=== PATIENT | male | born 1960 | race Caucasian/White ===

== ENCOUNTER 2020-02-14 17:21 | Inpatient (IN) | payer BC, OTHER ==
[2020-02-14] MEDS ORDERED: Sodium Chloride 0.9% 10 ML Syringe FLUSH PRN (17:39)
[2020-02-14] MEDS ORDERED: Sodium Chloride 0.9% 1,000 ML IV ONE ×2 (17:39→18:57)
[2020-02-14] MEDS ORDERED: Ondansetron 4 MG/2 ML SDV IVPUSH ONE (17:39)
--- NOTE | 2020-02-14 17:46 | EDM.PDOC ---
ED HPI GENERAL MEDICAL PROBLEM - General Chief Complaint: General Stated Complaint: N/V Time Seen by Provider: 02/14/20 17:22 Source of Information: Reports: Patient History Limitations: Reports: No Limitations - History of Present Illness INITIAL COMMENTS - FREE TEXT/NARRATIVE: Patient is a 59-year-old gentleman who presents to the emergency department via private vehicle with a complaint of dizziness and vomiting. Patient states approximately 6 a.m. this morning, he became dizzy and had an episode of vomiting. This has persisted during the day and is increasing and worsening. decided to bring him to emergency department. Patient states he does have a history of uncontrollable high blood pressure. Patient denies fever, abdominal pain, blood in vomitus, bowel changes, chest pain, shortness of breath, covid concerns, out of area travel, or family members with similar symptoms. Onset: Today Onset Time: 06:00 Duration: Hour(s): Location: Reports: Head Quality: Reports: Pressure Severity: Mild Improves with: Reports: None Worsens with: Reports: Movement Context: Denies: Activity, Trauma Associated Symptoms: Reports: Diaphoresis, Nausea/Vomiting. Denies: Chest Pain, Fever/Chills, Shortness of Breath - Related Data Allergies Allergy/AdvReac Type Severity Reaction Status Date / Time No Known Drug Allergies Allergy Cannot Verified 02/14/20 19:00 Remember Home Meds: Home Meds Olmesartan [Benicar] 20 mg PO DAILY 02/14/20 [History] ED ROS GENERAL - Review of Systems Review Of Systems: Comprehensive ROS is negative, except as noted in HPI. Constitutional: Reports: No Symptoms HEENT: Reports: No Symptoms Respiratory: Reports: No Symptoms Cardiovascular: Reports: No Symptoms Endocrine: Reports: No Symptoms GI/Abdominal: Reports: Nausea, Vomiting. Denies: Abdominal Pain, Constipation, Diarrhea : Reports: No Symptoms Musculoskeletal: Reports: No Symptoms Skin: Reports: No Symptoms Neurological: Reports: Dizziness, Headache Psychiatric: Reports: No Symptoms Hematologic/Lymphatic: Reports: No Symptoms Immunologic: Reports: No Symptoms ED EXAM, GENERAL - Physical Exam Exam: See Below Exam Limited By: No Limitations General Appearance: Alert, WD/WN, Mild Distress Eye Exam: Bilateral Eye: Normal Inspection Ears: Normal External Exam, Normal Canal, Hearing Grossly Normal, Normal TMs Nose: Normal Inspection, Normal Mucosa, No Blood Throat/Mouth: Normal Inspection, Normal Oropharynx, No Airway Compromise Head: Atraumatic, Normocephalic Neck: Normal Inspection, Supple, Non-Tender, Full Range of Motion. No: Lymphadenopathy (L), Lymphadenopathy (R) Respiratory/Chest: No Respiratory Distress, Lungs Clear, Normal Breath Sounds, No Accessory Muscle Use, Chest Non-Tender Cardiovascular: Regular Rate, Rhythm, No Murmur GI/Abdominal: Normal Bowel Sounds, Soft, Non-Tender, No Organomegaly, No Distention, No Abnormal Bruit, No Mass Back Exam: Normal Inspection. No: CVA Tenderness (L), CVA Tenderness (R) Extremities: Normal Inspection, No Pedal Edema Neurological: Alert, Oriented, CN II-XII Intact, Normal Cognition Psychiatric: Normal Affect, Normal Mood Skin Exam: Warm, Dry, Intact, Normal Color, No Rash Lymphatic: No Adenopathy EKG INTERPRETATION EKG Date: 02/14/20 Time: 17:45 Rhythm: NSR Rate (Beats/Min): 64 [place]: Normal P-Wave: Present QRS: Normal ST-T: Normal QT: Normal Comparison: NA - No Prior EKG Course - Vital Signs Last Recorded V/S: Last Vital Signs Temp 97.3 F 02/14/20 17:32 Pulse 51 L 02/14/20 19:18 Resp 16 02/14/20 19:18 BP 197/86 H 02/14/20 19:18 Pulse Ox 97 02/14/20 19:18 - Orders/Labs/Meds Orders: Active Orders 24 hr Category Date Time Status EKG Documentation Completion [RC] ASDIRECTED Care 02/14/20 18:25 Ordered Peripheral IV Care [RC] . DIRECTED Care 02/14/20 17:39 Ordered Sodium Chloride 0.9% [Saline Flush] Med 02/14/20 17:39 Ordered 10 ml FLUSH Q8HR PRN hydrALAZINE [Apresoline] Med 02/14/20 20:45 Ordered 10 mg PO Q6H Peripheral IV Insertion Adult [OM.PC] Routine Oth 02/14/20 17:39 Ordered EKG 12 Lead [EK] Stat Ther 02/14/20 18:25 Ordered Medication Orders Hydralazine HCl (Apresoline) 10 mg PO Q6H BRET Ondansetron HCl (Zofran) 4 mg IV Q4H PRN PRN Reason: Nausea/Vomiting Sodium Chloride (Saline Flush) 10 ml FLUSH Q8HR PRN PRN Reason: keep vein open Labs: Laboratory Tests 02/14/20 02/14/20 02/14/20 Range/Units 17:52 17:52 17:52 WBC 10.11 H (5.00-10.00) 10^3/uL RBC 5.02 (4.50-6.00) 10^6/uL Hgb 15.8 (13.0-17.0) g/dL Hct 45.1 (40.0-52.0) % MCV 89.8 (82.0-92.0) fL MCH 31.5 H (27.0-31.0) pg MCHC 35.0 (32.0-36.0) g/dL RDW 12.4 (11.5-14.5) % Plt Count 240 (150-400) 10^3/uL MPV 9.3 (7.4-10.4) fL Immature Gran % (Auto) 0.3 (0.0-5.0) % Neut % (Auto) 89.0 H (50.0-70.0) % Lymph % (Auto) 7.0 L (20.0-40.0) % [place] % (Auto) 3.6 (2.0-8.0) % Eos % (Auto) 0.0 L (1.0-3.0) % Baso % (Auto) 0.1 (0.0-1.0) % Neut # (Auto) 9.00 H (2.50-7.00) 10^3/uL Lymph # (Auto) 0.71 L (1.00-4.00) 10^3/uL [place] # (Auto) 0.36 (0.10-0.80) 10^3/uL Eos # (Auto) 0.00 L (0.10-0.30) 10^3/uL Baso # (Auto) 0.01 (0.00-0.10) 10^3/uL Immature Gran # (Auto) 0.03 (0.00-0.50) 10^3/uL PT 10.0 (9.2-11.2) SEC INR 1.0 (0.9-1.1) APTT 24.3 (22.8-31.4) SEC Sodium 140 (136-145) mmol/L Potassium 3.7 (3.3-5.3) mmol/L Chloride 106 (98-115) mmol/L Carbon Dioxide 23.3 (21.0-32.0) mmol/L Anion Gap 14.4 (5-15) mmol/L BUN 14 (6-25) mg/dL Creatinine 0.68 (0.51-1.17) mg/dL Est Cr Clr Drug Dosing 121.50 mL/min Estimated GFR (MDRD) > 60 mL/min Glucose 174 H (75 - 99) mg/dL Calcium 8.6 L (8.7-10.3) mg/dL Total Bilirubin 0.5 (0.2-1.0) mg/dL AST 15 (15-37) U/L ALT 9 L (12-78) U/L Alkaline Phosphatase 74 (46-116) IU/L Troponin I (0.00-0.070) ng/mL Total Protein 7.2 (6.4-8.2) g/dL Albumin 3.86 (3.00-4.80) g/dL 02/14/20 Range/Units 17:52 WBC (5.00-10.00) 10^3/uL RBC (4.50-6.00) 10^6/uL Hgb (13.0-17.0) g/dL Hct (40.0-52.0) % MCV (82.0-92.0) fL MCH (27.0-31.0) pg MCHC (32.0-36.0) g/dL RDW (11.5-14.5) % Plt Count (150-400) 10^3/uL MPV (7.4-10.4) fL Immature Gran % (Auto) (0.0-5.0) % Neut % (Auto) (50.0-70.0) % Lymph % (Auto) (20.0-40.0) % [place] % (Auto) (2.0-8.0) % Eos % (Auto) (1.0-3.0) % Baso % (Auto) (0.0-1.0) % Neut # (Auto) (2.50-7.00) 10^3/uL Lymph # (Auto) (1.00-4.00) 10^3/uL [place] # (Auto) (0.10-0.80) 10^3/uL Eos # (Auto) (0.10-0.30) 10^3/uL Baso # (Auto) (0.00-0.10) 10^3/uL Immature Gran # (Auto) (0.00-0.50) 10^3/uL PT (9.2-11.2) SEC INR (0.9-1.1) APTT (22.8-31.4) SEC Sodium (136-145) mmol/L Potassium (3.3-5.3) mmol/L Chloride (98-115) mmol/L Carbon Dioxide (21.0-32.0) mmol/L Anion Gap (5-15) mmol/L BUN (6-25) mg/dL Creatinine (0.51-1.17) mg/dL Est Cr Clr Drug Dosing mL/min Estimated GFR (MDRD) mL/min Glucose (75 - 99) mg/dL Calcium (8.7-10.3) mg/dL Total Bilirubin (0.2-1.0) mg/dL AST (15-37) U/L ALT (12-78) U/L Alkaline Phosphatase (46-116) IU/L Troponin I 0.07 (0.00-0.070) ng/mL Total Protein (6.4-8.2) g/dL Albumin (3.00-4.80) g/dL Meds: Medications Generic Name Dose Route Start Last Admin Trade Name Freq PRN Reason Stop Dose Admin Hydralazine HCl 10 mg 02/14/20 20:45 Apresoline PO Q6H BRET Ondansetron HCl 4 mg 02/14/20 20:43 Zofran IV Q4H PRN Nausea/Vomiting Sodium Chloride 10 ml 02/14/20 17:39 Saline Flush FLUSH Q8HR PRN keep vein open Discontinued Medications Generic Name Dose Route Start Last Admin Trade Name Freq PRN Reason Stop Dose Admin Diazepam 2 mg 02/14/20 17:39 02/14/20 18:05 Valium IVPUSH 02/14/20 17:40 2 mg ONETIME ONE Administration Sodium Chloride 1,000 mls @ 999 mls/hr 02/14/20 17:39 02/14/20 17:55 Normal Saline IV 02/14/20 18:39 999 mls/hr .BOLUS ONE Administration Sodium Chloride 1,000 mls @ 999 mls/hr 02/14/20 18:57 02/14/20 19:00 Normal Saline IV 02/14/20 19:57 999 mls/hr .BOLUS ONE Administration Ketorolac Tromethamine 30 mg 02/14/20 18:57 02/14/20 19:07 Toradol IVPUSH 02/14/20 18:58 30 mg ONETIME ONE Administration Ondansetron HCl 8 mg 02/14/20 17:39 02/14/20 17:58 Zofran IVPUSH 02/14/20 17:40 8 mg ONETIME ONE Administration - Radiology Interpretation Free Text/Narrative:: CT head without contrast shows no acute intracranial process. - Re-Assessments/Exams Free Text/Narrative Re-Assessment/Exam: 02/14/20 20:41 Patient afebrile, dizziness and vomiting, resolved, blood pressure remains high after Benicar. Patient will be given 10 mg hydralazine. Discussed case with Dr. Reece, patient will be admitted and followed by her service for hypertension urgency and control Departure - Departure Time of Disposition: 21:07 Disposition: Refer to Observation Condition: Fair Clinical Impression: Hypertensive urgency, Hypertension screening, Vertigo - Discharge Information Sepsis Event Note (ED) - Evaluation Sepsis Screening Result: No Definite Risk - Focused Exam Vital Signs: Vital Signs Temp Pulse Resp BP Pulse Ox 02/14/20 19:18 51 L 16 197/86 H 97 02/14/20 17:32 97.3 F 74 20 207/112 H 95 - My Orders Last 24 Hours: My Active Orders 02/14/20 17:39 Peripheral IV Care [RC] . DIRECTED Sodium Chloride 0.9% [Saline Flush] 10 ml FLUSH Q8HR PRN Peripheral IV Insertion Adult [OM.PC] Routine 02/14/20 18:25 EKG Documentation Completion [RC] ASDIRECTED EKG 12 Lead [EK] Stat 02/14/20 20:45 hydrALAZINE [Apresoline] 10 mg PO Q6H - Assessment/Plan Last 24 Hours: My Active Orders 02/14/20 17:39 Peripheral IV Care [RC] . DIRECTED Sodium Chloride 0.9% [Saline Flush] 10 ml FLUSH Q8HR PRN Peripheral IV Insertion Adult [OM.PC] Routine 02/14/20 18:25 EKG Documentation Completion [RC] ASDIRECTED EKG 12 Lead [EK] Stat 02/14/20 20:45 hydrALAZINE [Apresoline] 10 mg PO Q6H Assessment:: Hypertension Plan: Admitted for observation
[2020-02-14 18:28] LABS: ANION GAP 14.4 mmol/L (5-15); CHLORIDE,CL 106 mmol/L (98-115); SODIUM,NA 140 mmol/L (136-145)
--- NOTE | 2020-02-14 18:31 | CT ---
[id number] CT/CT Head WO IV EXAM: CT Head WO IV CLINICAL DATA: DIZZINESS. COMPARISON STUDY: None FINDINGS: No intracranial hemorrhage, extra-axial fluid collection, mass, or acute ischemia. Soft tissues are unremarkable. Paranasal sinuses and mastoid air cells are clear. IMPRESSION: No acute intracranial findings. Sunny Thurman DO 02/14/20 1829 Thank you for allowing us to participate in the care of your patient.
[2020-02-14 18:40] LABS: PTT,PARTIAL THROMBOPLSTIN TIME 24.3 SEC (22.8-31.4)
[2020-02-14] MEDS ORDERED: Ketorolac 30 MG/ML SDV IVPUSH ONE (18:57)
[2020-02-14] MEDS ORDERED: Ondansetron 4 MG/2 ML SDV IV PRN (20:43)
[2020-02-14] MEDS: hydrALAZINE 10 MG Tab PO SCH (21:07)
[2020-02-15] MEDS: hydrALAZINE 10 MG Tab PO SCH ×4 (01:58→21:09)
[2020-02-15] MEDS ORDERED: OLMESARTAN 20 MG PO SCH (09:00)
[2020-02-15] MEDS ORDERED: Meclizine 25 MG Tab PO PRN (09:45)
[2020-02-15] MEDS: Sodium Chloride 0.9% 1,000 ML IV SCH ×2 (10:00→18:10)
--- NOTE | 2020-02-15 10:30 | PCM.PN ---
- General Info Date of Service: 02/15/20 Admission Dx/Problem (Free Text): Vertigo, vomiting, hypertensive urgency - Review of Systems Systems Review Comment:: 02/14: Darius is seen today in observation rounds. He was admitted through the ER on 02/13 with vertigo, vomiting and hypertensive urgency. He said his blood pressure usually runs around 150-160 systolic and 80's diastolic. He takes olmesartan 20 mg PO daily. He had previously been on that at 40 mg as well as HCTZ and metoprolol but "if my blood pressure gets down to the 130's I feel so wiped out and I feel better in the 150's. He reports being in his normal state of health when he woke up at 5:30AM on 02/13, he made some coffee and started to feel mildly unwell, drank half a cup of coffee and then "all of a sudden the room started to spin around me and I couldn't stop vomiting". No sick contacts, no recent illness. He has not had this happen before. He felt so unwell he presented to the ER. He had a head CT which was negative, EKG was negative, troponin 0.07, all other labs largely unremarkable with the exception of a BG Of 174 with no hx of diabetes. His blood press was noted to be 218/102, he had not yet taken his olmesartan for the day. He had hydralazine ordered for PRN help with his HTN and received a total of 30 mg since admission without much decrease in his BP. He denies having a headache. He did state on 02/13 he had vomited so much he "felt like my eyes were going to pop out of my head". He is open to getting his BP under better control. He currently is unable to open his eyes while talking with me due to the sensation that the room is spinning. He last vomited around 5PM on 02/13 but does feel nauseated. He notes that the IVF's and zofran in the ER did help some. PMH significant for poorly controlled HTN - He sees a provider in [place], [place] who has been prescribing his Benicar. Reportedly she is an MD that focuses on bioidentical medications and he has several supplements she has suggested he take and he does. He is looking for a PCP in the [place] area, where they have a summer home. PSH: R knee arthroscopy FMHx: Mother had diabetes, "100% of my family has HTN", he has 3 brothers, had 7 sisters, 1 from pancreatic cancer and another one from complications of diabetes. 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 - Patient Data Vitals - Most Recent: Last Vital Signs Temp 97.8 F 02/15/20 06:51 Pulse 85 02/15/20 06:51 Resp 16 02/15/20 06:51 BP 193/97 H 02/15/20 07:58 Pulse Ox 96 02/15/20 06:51 Weight - Most Recent: 260 lb 3 oz I&O - Last 24 Hours: Intake & Output 02/14/20 02/15/20 02/15/20 22:59 06:59 14:59 Intake Total 100 Balance 100 Lab Results Last 24 Hours: Laboratory Results - last 24 hr 02/14/20 02/14/20 02/14/20 Range/Units 17:52 17:52 17:52 WBC 10.11 H (5.00-10.00) 10^3/uL RBC 5.02 (4.50-6.00) 10^6/uL Hgb 15.8 (13.0-17.0) g/dL Hct 45.1 (40.0-52.0) % MCV 89.8 (82.0-92.0) fL MCH 31.5 H (27.0-31.0) pg MCHC 35.0 (32.0-36.0) g/dL RDW 12.4 (11.5-14.5) % Plt Count 240 (150-400) 10^3/uL MPV 9.3 (7.4-10.4) fL Immature Gran % (Auto) 0.3 (0.0-5.0) % Neut % (Auto) 89.0 H (50.0-70.0) % Lymph % (Auto) 7.0 L (20.0-40.0) % [place] % (Auto) 3.6 (2.0-8.0) % Eos % (Auto) 0.0 L (1.0-3.0) % Baso % (Auto) 0.1 (0.0-1.0) % Neut # (Auto) 9.00 H (2.50-7.00) 10^3/uL Lymph # (Auto) 0.71 L (1.00-4.00) 10^3/uL [place] # (Auto) 0.36 (0.10-0.80) 10^3/uL Eos # (Auto) 0.00 L (0.10-0.30) 10^3/uL Baso # (Auto) 0.01 (0.00-0.10) 10^3/uL Immature Gran # (Auto) 0.03 (0.00-0.50) 10^3/uL PT 10.0 (9.2-11.2) SEC INR 1.0 (0.9-1.1) APTT 24.3 (22.8-31.4) SEC Sodium 140 (136-145) mmol/L Potassium 3.7 (3.3-5.3) mmol/L Chloride 106 (98-115) mmol/L Carbon Dioxide 23.3 (21.0-32.0) mmol/L Anion Gap 14.4 (5-15) mmol/L BUN 14 (6-25) mg/dL Creatinine 0.68 (0.51-1.17) mg/dL Est Cr Clr Drug Dosing 121.50 mL/min Estimated GFR (MDRD) > 60 mL/min Glucose 174 H (75 - 99) mg/dL Calcium 8.6 L (8.7-10.3) mg/dL Total Bilirubin 0.5 (0.2-1.0) mg/dL AST 15 (15-37) U/L ALT 9 L (12-78) U/L Alkaline Phosphatase 74 (46-116) IU/L Troponin I (0.00-0.070) ng/mL Total Protein 7.2 (6.4-8.2) g/dL Albumin 3.86 (3.00-4.80) g/dL 02/14/20 Range/Units 17:52 WBC (5.00-10.00) 10^3/uL RBC (4.50-6.00) 10^6/uL Hgb (13.0-17.0) g/dL Hct (40.0-52.0) % MCV (82.0-92.0) fL MCH (27.0-31.0) pg MCHC (32.0-36.0) g/dL RDW (11.5-14.5) % Plt Count (150-400) 10^3/uL MPV (7.4-10.4) fL Immature Gran % (Auto) (0.0-5.0) % Neut % (Auto) (50.0-70.0) % Lymph % (Auto) (20.0-40.0) % [place] % (Auto) (2.0-8.0) % Eos % (Auto) (1.0-3.0) % Baso % (Auto) (0.0-1.0) % Neut # (Auto) (2.50-7.00) 10^3/uL Lymph # (Auto) (1.00-4.00) 10^3/uL [place] # (Auto) (0.10-0.80) 10^3/uL Eos # (Auto) (0.10-0.30) 10^3/uL Baso # (Auto) (0.00-0.10) 10^3/uL Immature Gran # (Auto) (0.00-0.50) 10^3/uL PT (9.2-11.2) SEC INR (0.9-1.1) APTT (22.8-31.4) SEC Sodium (136-145) mmol/L Potassium (3.3-5.3) mmol/L Chloride (98-115) mmol/L Carbon Dioxide (21.0-32.0) mmol/L Anion Gap (5-15) mmol/L BUN (6-25) mg/dL Creatinine (0.51-1.17) mg/dL Est Cr Clr Drug Dosing mL/min Estimated GFR (MDRD) mL/min Glucose (75 - 99) mg/dL Calcium (8.7-10.3) mg/dL Total Bilirubin (0.2-1.0) mg/dL AST (15-37) U/L ALT (12-78) U/L Alkaline Phosphatase (46-116) IU/L Troponin I 0.07 (0.00-0.070) ng/mL Total Protein (6.4-8.2) g/dL Albumin (3.00-4.80) g/dL Med Orders - Current: Current Medications Hydralazine HCl (Apresoline) 10 mg PO Q6H BRET Last Admin: 02/15/20 07:58 Dose: 10 mg Documented by: Meclizine HCl (Antivert) 25 mg PO Q6H PRN PRN Reason: Dizziness Non-Formulary Medication (Olmesartan [Benicar]) 20 mg PO DAILY [facility] Ondansetron HCl (Zofran) 4 mg IV Q4H PRN PRN Reason: Nausea/Vomiting Last Admin: 02/15/20 08:14 Dose: 4 mg Documented by: Sodium Chloride (Saline Flush) 10 ml FLUSH Q8HR PRN PRN Reason: keep vein open Last Admin: 02/15/20 08:13 Dose: 10 ml Documented by: Discontinued Medications Diazepam (Valium) 2 mg IVPUSH ONETIME ONE Stop: 02/14/20 17:40 Last Admin: 02/14/20 18:05 Dose: 2 mg Documented by: Sodium Chloride (Normal Saline) 1,000 mls @ 999 mls/hr IV .BOLUS ONE Stop: 02/14/20 18:39 Last Admin: 02/14/20 17:55 Dose: 999 mls/hr Documented by: Sodium Chloride (Normal Saline) 1,000 mls @ 999 mls/hr IV .BOLUS ONE Stop: 02/14/20 19:57 Last Admin: 02/14/20 19:00 Dose: 999 mls/hr Documented by: Ketorolac Tromethamine (Toradol) 30 mg IVPUSH ONETIME ONE Stop: 02/14/20 18:58 Last Admin: 02/14/20 19:07 Dose: 30 mg Documented by: Ondansetron HCl (Zofran) 8 mg IVPUSH ONETIME ONE Stop: 02/14/20 17:40 Last Admin: 02/14/20 17:58 Dose: 8 mg Documented by: - Exam General: Alert, Oriented, Cooperative, Mild Distress (Appears uncomfortable due to the vertigo) Lungs: Clear to Auscultation, Normal Respiratory Effort Cardiovascular: Regular Rate, Regular Rhythm, No Murmurs GI/Abdominal Exam: Normal Bowel Sounds Extremities: No Pedal Edema Sepsis Event Note - Evaluation Sepsis Screening Result: No Definite Risk - Focused Exam Vital Signs: Vital Signs Temp Pulse Resp BP BP BP Pulse Ox 02/15/20 07:58 193/97 H 02/15/20 06:51 97.8 F 85 16 195/98 H 197/99 H 96 02/15/20 03:56 74 187/96 H 02/15/20 02:00 98 F 88 20 218/102 H 96 02/15/20 01:58 218/102 H 02/14/20 22:56 97.5 F 77 16 203/95 H 97 Date Exam was Performed: 02/15/20 Time Exam was Performed: 11:10 - Problem List & Annotations (1) Hypertensive urgency SNOMED Code(s): 862662877 Code(s): I16.0 - HYPERTENSIVE URGENCY Status: Acute Current Visit: Yes (2) Vertigo SNOMED Code(s): 398053375 Code(s): R42 - DIZZINESS AND GIDDINESS Status: Acute Current Visit: Yes - Problem List Review Problem List Initiated/Reviewed/Updated: Yes - My Orders Last 24 Hours: My Active Orders 02/15/20 09:00 Olmesartan [Benicar] 20 mg PO DAILY 02/15/20 10:21 Meclizine [Antivert] 25 mg PO Q6H PRN - Assessment Assessment:: Hypertensive Urgency Vertigo Vomiting secondary to vertigo Elevated blood glucose - Plan Plan:: Hypertensive Urgency - Increase olmesartan to 40 mg PO daily (from his home supply) - Add HCTZ 25 mg PO daily - Hydralazine 10 mg IV PRN for systolic BP >190 - Repeat troponin 02/14 was 0.05 Vertigo - Meclizine 25 mg PO q 6 hours PRN vertigo - PT eval and treat for Malka maneuver Vomiting secondary to Vertigo - zofran 4 mg IV or PO q hours PRN N/V - NS at 125 mL/hr to maintain hydration as he has poor PO intake due to nausea Elevated blood glucose - A1C evaluated 02/14 and is normal at 5.2 Anticipate discharge to home in 1-2 days CODE STATUS: Full Code DVT prophylaxis: Ambulation
[2020-02-15 10:37] LABS: ANION GAP 14.1 mmol/L (5-15); CHLORIDE,CL 105 mmol/L (98-115); SODIUM,NA 143 mmol/L (136-145)
[2020-02-15 11:01] LABS: HEMOGLOBIN A1C 5.2 % (4.3-5.7)
[2020-02-15] MEDS: Hydrochlorothiazide 25 MG Tab PO SCH (11:35)
[2020-02-15] MEDS: OLMESARTAN 40 MG PO SCH (11:44)
[2020-02-15] MEDS: PROGESTERONE TOP SCH (11:59)
[2020-02-15] MEDS: TESTOSTERONE TOP SCH (11:59)
[2020-02-16] MEDS: hydrALAZINE 10 MG Tab PO SCH ×3 (02:16→14:07)
[2020-02-16] MEDS: Sodium Chloride 0.9% 1,000 ML IV SCH (02:16)
[2020-02-16] MEDS: PROGESTERONE TOP SCH (08:17)
[2020-02-16] MEDS: OLMESARTAN 40 MG PO SCH (08:17)
[2020-02-16] MEDS: TESTOSTERONE TOP SCH (08:17)
[2020-02-16] MEDS: Hydrochlorothiazide 25 MG Tab PO SCH (08:19)
[2020-02-16] MEDS ORDERED: Acetaminophen 325 MG Tab PO PRN (12:39)
--- NOTE | 2020-02-16 14:08 | PCM.PN ---
- General Info Date of Service: 02/16/20 Admission Dx/Problem (Free Text): Vertigo, vomiting, hypertensive urgency - Review of Systems Systems Review Comment:: 02/15: Darius had some BP's in the 160's 02/14 but this AM before he had his medications his BP was 200 systolic. After his medications it came down to 180 systolic although diastolic was 101. He reports that the sensation of the room spinning is better and he feels he is no longer off balance. He states his eyes and the front of his head felt a little off earlier this morning but he feels that was related to trying to read his phone without his reading glasses. IVF's were discontinued 02/15 as he has been drinking and eat adequately. - Patient Data Vitals - Most Recent: Last Vital Signs Temp 97.4 F 02/16/20 10:49 Pulse 64 02/16/20 10:49 Resp 20 02/16/20 10:49 BP 188/101 H 02/16/20 10:49 Pulse Ox 94 L 02/16/20 10:49 Weight - Most Recent: 260 lb 3 oz I&O - Last 24 Hours: Intake & Output 02/15/20 02/16/20 02/16/20 22:59 06:59 14:59 Intake Total 2089 1970 Balance 2089 1970 Med Orders - Current: Current Medications Acetaminophen (Tylenol) 650 mg PO Q4H PRN PRN Reason: Headache Last Admin: 02/16/20 12:47 Dose: 650 mg Documented by: Hydralazine HCl (Apresoline) 10 mg PO Q6H PRN PRN Reason: Hypertension Hydrochlorothiazide (Hydrochlorothiazide) 25 mg PO DAILY [facility] Last Admin: 02/16/20 08:19 Dose: 25 mg Documented by: Meclizine HCl (Antivert) 25 mg PO Q6H PRN PRN Reason: Dizziness Last Admin: 02/15/20 11:34 Dose: 25 mg Documented by: Ondansetron HCl (Zofran) 4 mg IV Q4H PRN PRN Reason: Nausea/Vomiting Last Admin: 02/15/20 08:14 Dose: 4 mg Documented by: Olmesartan [Benicar] (40 Mg) 0 each PO DAILY [facility] Last Admin: 02/16/20 08:17 Dose: 1 each Documented by: Testosterone/Progesterone Lipoderm 250mg/5mg/Ml Cream 0 each TOP DAILY [facility] Last Admin: 02/16/20 08:17 Dose: 1 each Documented by: Sodium Chloride (Saline Flush) 10 ml FLUSH Q8HR PRN PRN Reason: keep vein open Last Admin: 02/15/20 08:13 Dose: 10 ml Documented by: Discontinued Medications Diazepam (Valium) 2 mg IVPUSH ONETIME ONE Stop: 02/14/20 17:40 Last Admin: 02/14/20 18:05 Dose: 2 mg Documented by: Hydralazine HCl (Apresoline) 10 mg PO Q6H [facility] Last Admin: 02/16/20 14:07 Dose: Not Given Documented by: Sodium Chloride (Normal Saline) 1,000 mls @ 999 mls/hr IV .BOLUS ONE Stop: 02/14/20 18:39 Last Admin: 02/14/20 17:55 Dose: 999 mls/hr Documented by: Sodium Chloride (Normal Saline) 1,000 mls @ 999 mls/hr IV .BOLUS ONE Stop: 02/14/20 19:57 Last Admin: 02/14/20 19:00 Dose: 999 mls/hr Documented by: Sodium Chloride (Normal Saline) 1,000 mls @ 125 mls/hr IV ASDIRECTED [facility] Last Admin: 02/16/20 02:16 Dose: 125 mls/hr Documented by: Ketorolac Tromethamine (Toradol) 30 mg IVPUSH ONETIME ONE Stop: 02/14/20 18:58 Last Admin: 02/14/20 19:07 Dose: 30 mg Documented by: Non-Formulary Medication (Olmesartan [Benicar]) 20 mg PO DAILY [facility] Last Admin: 02/15/20 10:34 Dose: Not Given Documented by: Ondansetron HCl (Zofran) 8 mg IVPUSH ONETIME ONE Stop: 02/14/20 17:40 Last Admin: 02/14/20 17:58 Dose: 8 mg Documented by: - Exam General: Alert, Oriented, Cooperative, No Acute Distress Lungs: Clear to Auscultation, Normal Respiratory Effort Cardiovascular: Regular Rate, Regular Rhythm, No Murmurs GI/Abdominal Exam: Normal Bowel Sounds Extremities: No Pedal Edema Sepsis Event Note - Evaluation Sepsis Screening Result: No Definite Risk - Focused Exam Vital Signs: Vital Signs Temp Pulse Resp BP BP Pulse Ox 02/16/20 10:49 97.4 F 64 20 188/101 H 94 L 02/16/20 09:19 193/90 H 02/16/20 08:18 200/95 H 02/16/20 06:49 97.7 F 62 16 192/96 H 96 02/16/20 02:32 98.1 F 67 20 168/84 H 95 02/16/20 02:16 168/84 H Date Exam was Performed: 02/16/20 Time Exam was Performed: 14:08 - Problem List & Annotations (1) Hypertensive urgency SNOMED Code(s): 414975864 Code(s): I16.0 - HYPERTENSIVE URGENCY Status: Acute Current Visit: Yes (2) Vertigo SNOMED Code(s): 547021822 Code(s): R42 - DIZZINESS AND GIDDINESS Status: Acute Current Visit: Yes - Problem List Review Problem List Initiated/Reviewed/Updated: Yes - My Orders Last 24 Hours: My Active Orders 02/15/20 14:23 Admission Status [Patient Status] [ADT] Routine 02/15/20 17:18 Discontinue Telemetry Monitoring [Cardiac Monitoring Discontinue] [RC] Click to Edit 02/16/20 12:39 Acetaminophen [Tylenol] 650 mg PO Q4H PRN 02/16/20 14:08 hydrALAZINE [Apresoline] 10 mg PO Q6H PRN - Assessment Assessment:: Hypertensive Urgency Vertigo Vomiting secondary to vertigo Elevated blood glucose - Plan Plan:: Hypertensive Urgency - Increase olmesartan to 40 mg PO daily (from his home supply) (02/14) - Add HCTZ 25 mg PO daily (02/14) - Hydralazine 10 mg PO q 6 hours PRN for systolic BP >190 - Repeat troponin 02/14 was 0.05 Vertigo - Meclizine 25 mg PO q 6 hours PRN vertigo - PT eval and treat for Malka maneuver (02/14) Vomiting secondary to Vertigo - zofran 4 mg IV or PO q hours PRN N/V - NS at 125 mL/hr to maintain hydration as he has poor PO intake due to nausea, this was discontinued 02/15. Elevated blood glucose - A1C evaluated 02/14 and is normal at 5.2 Anticipate discharge to home in 1-2 days CODE STATUS: Full Code DVT prophylaxis: Ambulation
[2020-02-16] MEDS: hydrALAZINE 10 MG Tab PO PRN (15:20)
[2020-02-16] MEDS ORDERED: amLODIPine 5 MG Tab PO ONE (16:38)
[2020-02-17] MEDS: OLMESARTAN 40 MG PO SCH (08:30)
[2020-02-17] MEDS: Hydrochlorothiazide 25 MG Tab PO SCH (08:30)
[2020-02-17] MEDS: hydrALAZINE 10 MG Tab PO PRN (08:34)
--- NOTE | 2020-02-17 08:50 | PCM.DCSUM1 ---
Discharge Summary - Hospital Course Free Text/Narrative:: Admission Date: 02/14/2020 Discharge Date: 02/17/2020 Admission Diagnoses: Vertigo with associated nausea and vomiting Hypertensive Urgency (BP 218/102 on admission) Elevated blood glucose Discharge Diagnoses: Vertigo with associated nausea and vomiting, resolved. - Meclizine 25 mg PO q 6 hours PRN vertigo symptoms, will get OTC Hypertensive Urgency (BP 218/102 on admission) currently 178/91 prior to AM meds, no evidence of end organ damage - Increase olmesartan from 20 mg daily to 20 mg PO BID - Add HCTZ 25 mg PO daily - Add Amlodipine 10 mg PO daily - Check BP at home BID and follow-up in clinic in 7-10 days - EKG negative, troponin negative x 2 Elevated blood glucose, A1C was 5.2, no evidence of diabetes Bilateral cerumen impaction s/p successful ear lavage Darius is seen is being discharged today from an inpatient stay. He was admitted through the ER on 02/13 with vertigo, vomiting and hypertensive urgency. He said his blood pressure usually runs around 150-160 systolic and 80's diastolic. He takes olmesartan 20 mg PO daily. He had previously been on that at 40 mg as well as HCTZ and metoprolol but "if my blood pressure gets down to the 130's I feel so wiped out and I feel better in the 150's. He reports being in his normal state of health when he woke up at 5:30AM on 02/13, he made some coffee and started to feel mildly unwell, drank half a cup of coffee and then "all of a sudden the room started to spin around me and I couldn't stop vomiting". No sick contacts, no recent illness. He has not had this happen before. He felt so unwell he presented to the ER. He had a head CT which was negative, EKG was negative, troponin 0.07, all other labs largely unremarkable with the exception of a BG Of 174 with no hx of diabetes. His blood press was noted to be 218/102, he had not yet taken his olmesartan for the day. He had hydralazine ordered for PRN help with his HTN and received a total of 30 mg since admission without much decrease in his BP. He denies having a headache. He did state on 7/27 he had vomited so much he "felt like my eyes were going to pop out of my head". He is open to getting his BP under better control. While inpatient his BP did tend to be high without evidence of end organ damage. The BP max was 207/112 on initial ER presentation and his lowest BP was 160/78. As noted above, he feels better with his blood pressure in the 150-160 range and is aware of the risks of poorly controlled hypertension. He is feels "like my old self" at discharge. He has been ambulatory without balance issues. While his BP is still significantly elevated at discharge, this is a chronic issue for him and the main reason for his admission was the vertigo with intractable vomiting, which has resolved. We will work on getting his blood pressure down further as an outpatient. He understands to present to the ER for headache, visual changes, chest pain, SOB. He will continue with his outpatient supplements. Medication Changes: See above Diet: Regular diet as tolerated CODE STATUS: Full Code Diagnosis: Stroke: No Modified Jaziel Scale: No Symptoms at All Modified [place] Scale Score: 0 - Discharge Data Discharge Date: 02/17/20 Discharge Disposition: Home, Self-Care 01 Condition: Good - Referral to Home Health Primary Care Physician: Bernice West MD - Discharge Diagnosis/Problem(s) (1) Hypertensive urgency SNOMED Code(s): 638531888 ICD Code: I16.0 - HYPERTENSIVE URGENCY Status: Acute Current Visit: Yes (2) Vertigo SNOMED Code(s): 607323790 ICD Code: R42 - DIZZINESS AND GIDDINESS Status: Acute Current Visit: Yes - Patient Summary/Data Consults: Consultations 02/15/20 10:30 PT Evaluation and Treatment [CONS] Routine Recommended Follow-up Testing/Procedures: Follow-up at [facility] with Dr. Bernice Reece in 7-10 days. Bring your blood pressure readings with you to that appointment. - Patient Instructions Diet: Usual Diet as Tolerated Activity: Rest and Relax Today Driving: May Drive Today - Discharge Plan *PRESCRIPTION DRUG MONITORING PROGRAM REVIEWED*: Not Applicable *COPY OF PRESCRIPTION DRUG MONITORING REPORT IN PATIENT DEAN: Not Applicable Prescriptions/Med Rec: Olmesartan Medoxomil [Benicar] 20 mg PO BID #60 tablet hydroCHLOROthiazide [Hydrochlorothiazide] 25 mg PO DAILY #30 tablet amLODIPine [Norvasc] 10 mg PO DAILY #30 tablet Home Medications: Home Meds Meclizine [Antivert] 25 mg PO Q6H PRN tablet 02/17/20 [Rx] Olmesartan Medoxomil [Benicar] 20 mg PO BID #60 tablet 02/17/20 [Rx] Patient's Own Medication [Ptom] 0 each PO DAILY each 02/17/20 [Rx] Patient's Own Medication [Ptom] 0 each TOP DAILY each 02/17/20 [Rx] amLODIPine [Norvasc] 10 mg PO DAILY #30 tablet 02/17/20 [Rx] hydroCHLOROthiazide [Hydrochlorothiazide] 25 mg PO DAILY #30 tablet 02/17/20 [Rx] Forms: ED Department Discharge Referrals: PCP,None [Ordering Only Provider] - - Discharge Summary/Plan Comment DC Time >30 min.: Yes Discharge Summary/Plan Comment: Total discharge time spent was 38 minutes. - General Info Date of Service: 02/17/20 Admission Dx/Problem (Free Text: Vertigo, vomiting, hypertensive urgency - Patient Data Vitals - Most Recent: Last Vital Signs Temp 97.9 F 02/17/20 06:28 Pulse 65 02/17/20 06:28 Resp 16 02/17/20 06:28 BP 191/101 H 02/17/20 08:34 Pulse Ox 96 02/17/20 06:28 Weight - Most Recent: 260 lb 3 oz I&O - Last 24 hours: Intake & Output 02/16/20 02/17/20 02/17/20 22:59 06:59 14:59 Intake Total 5085 400 Balance 5085 400 Med Orders - Current: Current Medications Acetaminophen (Tylenol) 650 mg PO Q4H PRN PRN Reason: Headache Last Admin: 02/16/20 12:47 Dose: 650 mg Documented by: Amlodipine Besylate (Norvasc) 10 mg PO DAILY BRET Last Admin: 02/17/20 08:30 Dose: 10 mg Documented by: Hydralazine HCl (Apresoline) 10 mg PO Q6H PRN PRN Reason: Hypertension Last Admin: 02/17/20 08:34 Dose: 10 mg Documented by: Hydrochlorothiazide (Hydrochlorothiazide) 25 mg PO DAILY BRET Last Admin: 02/17/20 08:30 Dose: 25 mg Documented by: Meclizine HCl (Antivert) 25 mg PO Q6H PRN PRN Reason: Dizziness Last Admin: 02/15/20 11:34 Dose: 25 mg Documented by: Ondansetron HCl (Zofran) 4 mg IV Q4H PRN PRN Reason: Nausea/Vomiting Last Admin: 02/15/20 08:14 Dose: 4 mg Documented by: Olmesartan [Benicar] (40 Mg) 0 each PO DAILY [facility] Last Admin: 02/17/20 08:30 Dose: 1 each Documented by: Testosterone/Progesterone Lipoderm 250mg/5mg/Ml Cream 0 each TOP DAILY [facility] Last Admin: 02/16/20 08:17 Dose: 1 each Documented by: Sodium Chloride (Saline Flush) 10 ml FLUSH Q8HR PRN PRN Reason: keep vein open Last Admin: 02/15/20 08:13 Dose: 10 ml Documented by: Discontinued Medications Amlodipine Besylate (Norvasc) 10 mg PO ONETIME ONE Stop: 02/16/20 16:39 Last Admin: 02/16/20 17:12 Dose: 10 mg Documented by: Diazepam (Valium) 2 mg IVPUSH ONETIME ONE Stop: 02/14/20 17:40 Last Admin: 02/14/20 18:05 Dose: 2 mg Documented by: Hydralazine HCl (Apresoline) 10 mg PO Q6H [facility] Last Admin: 02/16/20 14:07 Dose: Not Given Documented by: Sodium Chloride (Normal Saline) 1,000 mls @ 999 mls/hr IV .BOLUS ONE Stop: 02/14/20 18:39 Last Admin: 02/14/20 17:55 Dose: 999 mls/hr Documented by: Sodium Chloride (Normal Saline) 1,000 mls @ 999 mls/hr IV .BOLUS ONE Stop: 02/14/20 19:57 Last Admin: 02/14/20 19:00 Dose: 999 mls/hr Documented by: Sodium Chloride (Normal Saline) 1,000 mls @ 125 mls/hr IV ASDIRECTED [facility] Last Admin: 02/16/20 02:16 Dose: 125 mls/hr Documented by: Ketorolac Tromethamine (Toradol) 30 mg IVPUSH ONETIME ONE Stop: 02/14/20 18:58 Last Admin: 02/14/20 19:07 Dose: 30 mg Documented by: Non-Formulary Medication (Olmesartan [Benicar]) 20 mg PO DAILY BRET Last Admin: 02/15/20 10:34 Dose: Not Given Documented by: Ondansetron HCl (Zofran) 8 mg IVPUSH ONETIME ONE Stop: 02/14/20 17:40 Last Admin: 02/14/20 17:58 Dose: 8 mg Documented by: - Exam General: Reports: Alert, Oriented, Cooperative, No Acute Distress Lungs: Reports: Clear to Auscultation, Normal Respiratory Effort Cardiovascular: Reports: Regular Rate, Regular Rhythm, No Murmurs Extremities: No Pedal Edema
[2020-02-17] MEDS ORDERED: amLODIPine 5 MG Tab PO SCH (09:00)
[2020-02-17] MEDS: PROGESTERONE TOP SCH (11:24)
[2020-02-17] MEDS: TESTOSTERONE TOP SCH (11:24)
== END 2020-02-17 11:10 | disposition home or self-care (01) | DRG 199 ==
LOC: KA.ED 17:21 → KA.MS 20:43 → OBSVTOIN 02-15 14:23
PROVIDERS: ADMIT Internal Medicine; ATTEND Internal Medicine
DX: I16.0 Hypertensive urgency (principal); R42 Dizziness and giddiness; Z20.828 Contact with and (suspected) exposure to other viral communicable diseases; Z79.899 Other long term (current) drug therapy
CPT/HCPCS: 36415; 70450; 80048; 80053; 83036; 84484; 85025; 85610; 85730; 93005; 96361; 96374; 96375; 96376; 97140-GP; 97161-GP; 99220; 99285-25; A9270-GY; G0378; J1885; J2405; J3360; J7030; U0002